=== PATIENT | female | born 1975 | race Caucasian/White ===

== ENCOUNTER → 2018-07-22 | Outpatient (CLI) | payer OTHER ==
--- NOTE | 2018-07-22 17:48 | RADIOLOGY REPORT (SQ) ---
EXAM DESCRIPTION: VENOUS UNILATERAL UPPER COMPLETED DATE/TIME: 07/22/2018 5:37 pm REASON FOR STUDY: LUE SWELLING/PAIN COMPARISON: None. TECHNIQUE: Dynamic and static johnson scale and color images acquired of the left arm venous system. Se lected spectral images acquired with additional compression and augmentation maneuvers. The contralat eral subclavian vein and internal jugular vein were also imaged. Images stored on PACS. LIMITATIONS: None. FINDINGS: INTERNAL JUGULAR VEIN: Normal phasicity, compression, augmentation. No visualized echogeni c material on johnson scale. No defects on color images. Comparison opposite side normal. SUBCLAVIAN VEIN: Normal compression, augmentation. No visualized echogenic material on johnson scale. No defects on color images. AXILLARY VEIN: Normal compression, augmentation. No visualized echogenic material on johnson scale. No d efects on color images. BRACHIAL VEIN: Normal compression, augmentation. No visualized echogenic material on johnson scale. No d efects on color images. BASILIC VEIN: Normal compression, augmentation. No visualized echogenic material on johnson scale. No de fects on color images. CEPHALIC VEIN: Normal compression, augmentation. No visualized echogenic material on johnson scale. No d efects on color images. OTHER: No other significant finding. CONTRALATERAL SUBCLAVIAN VEIN AND INTERNAL JUGULAR VEIN: Normal phasicity, compression and augmentation. No visualized echogenic material on johnson scale. No de fects on color images. IMPRESSION: NO EVIDENCE DVT OR SVT LEFT ARM. TECHNICAL DOCUMENTATION: JOB ID: [id number] [employer]- All Rights Reserved Reading location - IP/workstation name: [email or web address]
== END ==
LOC: SP 14:57
DX: M79.622 Pain in left upper arm (principal); M79.89 Other specified soft tissue disorders
CPT/HCPCS: 93971